=== PATIENT | male | born 1950 ===

== ENCOUNTER 2020-01-17 20:38 | Outpatient (REF) | payer OTHER, SELFPAY ==
[2020-01-17 20:34] LABS: HGB 17.6 g/dL (13.5-17.5); MCH 35.2 pg (27.0-33.0); MCHC 34.5 % (32.0-36.0); MPV 10.8 fL (8.0-11.0); Platelet Count 238 10^3/uL (130-400); RDW 12.6 % (11.8-14.1); RDW-SD 47.5 fL; WBC 6.74 10^3/uL (4.4-10.8)
[2020-01-17 20:55] LABS: Anion Gap 13.2 mmol/L (3-11); BUN 13 mg/dL (7-18); CO2 24.8 mmol/L (21.0-32.0); CREATININE 0.79 mg/dL (0.70-1.30); Calcium 9.4 mg/dL (8.5-10.1); Chloride 104 mmol/L (98-107); Glucose 94 mg/dL (74-106); Potassium 4.9 mmol/L (3.5-5.1); Sodium 142 mmol/L (136-145)
== END 2020-01-17 20:58 ==
LOC: NCHCN 20:38
PROVIDERS: PCP Family Medicine; Visit Provider Nurse Practitioner Family
DX: R53.83 Other fatigue (principal); I10 Essential (primary) hypertension
CPT/HCPCS: 80048; 85027

== ENCOUNTER 2020-03-24 10:44 | Outpatient (REF) | payer OTHER, SELFPAY ==
[2020-03-24 20:55] LABS: HCT 54.4 % (40.0-50.0); MCH 35.8 pg (27.0-33.0); MCHC 35.3 % (32.0-36.0); MCV 101.3 fL (80-95); MPV 10.9 fL (8.0-11.0); Platelet Count 175 10^3/uL (130-400); RBC 5.37 10^6/uL (4.36-5.78); RDW 12.4 % (11.8-14.1); RDW-SD 46.3 fL; WBC 8.72 10^3/uL (4.4-10.8)
[2020-03-24 21:19] LABS: HGB 19.2 g/dL (13.5-17.5)
[2020-03-24 21:23] LABS: Hemoglobin A1C 5.5 % (<5.7)
== END 2020-03-24 11:04 ==
LOC: NCHCN 10:44
PROVIDERS: PCP Family Medicine; Visit Provider Nurse Practitioner Family
DX: R53.83 Other fatigue (principal); D75.1 Secondary polycythemia
CPT/HCPCS: 85027; 83036

== ENCOUNTER 2020-04-01 19:18 | Outpatient (REF) | payer OTHER, SELFPAY ==
[2020-04-01 21:12] LABS: Bilirubin Negative (Negative); Blood Negative (Negative); Clarity Clear (Clear); Glucose Negative (Negative); Ketones 15 mg/dL (Negative); Leukocyte Esterase Negative (Negative); Nitrite Negative (Negative); Specific Gravity 1.015 (1.005-1.025); Urobilinogen 0.2 EU/dL (Up TO 0.2)
[2020-04-01 21:13] LABS: Abs Immature Grans 0.03 10^3/uL (0.0-0.06); Absolute Basophil Count 0.03 10^3/uL (0.0-0.2); Absolute Eosinophil Count 0.15 10^3/uL (0.0-0.7); Absolute Lymphocyte Count 1.43 10^3/uL (1.2-3.4); Absolute Monocyte Count 0.59 10^3/uL (0.1-0.8); Absolute Neutrophil Count 3.92 10^3/uL (1.2-6.7); Basophils % 0.5; Eosinophils % 2.4; HCT 51.7 % (40.0-50.0); HGB 17.8 g/dL (13.5-17.5); Immature Grans % 0.5; Lymphocytes % 23.3; MCH 35.5 pg (27.0-33.0); MCHC 34.4 % (32.0-36.0); MPV 11.5 fL (8.0-11.0); Monocytes % 9.6; Neutrophils % 63.7; Nucleated RBC 0 %; RBC 5.02 10^6/uL (4.36-5.78); RDW 12.7 % (11.8-14.1); RDW-SD 48.7 fL; WBC 6.15 10^3/uL (4.4-10.8)
[2020-04-01 21:18] LABS: Platelet Count 133 10^3/uL (130-400)
[2020-04-01 21:42] LABS: ALT 20 U/L (16-63); AST 21 U/L (15-37); Albumin 4.3 g/dL (3.4-5.0); Alkaline Phosphatase 54 U/L (46-116); Anion Gap 13.2 mmol/L (3-11); BUN 10 mg/dL (7-18); Bilirubin, Total 0.3 mg/dL (0.2-1.0); CO2 23.8 mmol/L (21.0-32.0); CREATININE 0.61 mg/dL (0.70-1.30); Calculated LDL 111 mg/dL (<100); Chloride 104 mmol/L (98-107); Cholesterol 237 mg/dL (<200); Glucose 71 mg/dL (74-106); HDL Cholesterol 70 mg/dL (40-60); Potassium 4.2 mmol/L (3.5-5.1); Sodium 141 mmol/L (136-145); Total Protein 7.3 g/dL (6.4-8.2); Triglyceride 281 mg/dL (<150)
[2020-04-03 13:33] LABS: Erythropoietin 5.9 mIU/mL (2.6 - 18.5)
== END 2020-04-01 19:38 ==
LOC: NCHCN 19:18
PROVIDERS: PCP Family Medicine; Visit Provider Nurse Practitioner Family
DX: D75.1 Secondary polycythemia (principal); I10 Essential (primary) hypertension
CPT/HCPCS: 80053; 80061; 82668; 81003; 85025